=== PATIENT | male | born 1935 | race Caucasian/White ===

== ENCOUNTER 2021-05-31 00:42 | Day surgery (SDC) | payer MEDICARE, BC, SELFPAY ==
[2021-05-16 12:31] VITALS: BMI 19.7
[2021-05-31 09:36] VITALS: BP 134/67; PULSE 71; RESP 18; TEMP 36.3; O2SAT 100
[2021-05-31] MEDS: LACTATED RINGERS 1,000 ML 150 ML IV CONT (09:42)
--- NOTE | 2021-05-31 10:15 | WPDANESEPPF ---
Anes - Initial Pre Proc Eval Procedure: Operation Date: 05/31/21 10:30 Proposed Procedures p Esophagogastroduodenoscopy - Lars Meredith MD Date/Time: 05/31/21 10:15 Surgeon: Lars Meredith MD Pre Op Diagnosis: dysphagia Patient Data Age: 85 Gender: M Height: 1.83 m Weight: 61.8 kg Last Vital Signs Temp 97.3 F L 05/31/21 09:36 Pulse 71 05/31/21 09:36 Resp 18 05/31/21 09:36 BP 134/67 05/31/21 09:36 Pulse Ox 100 05/31/21 09:36 Allergies Allergy/AdvReac Type Severity Reaction Status Date / Time No Known Allergies Allergy NONE Unverified 05/16/21 12:27 Home Medications Medication Instructions Recorded Confirmed Type aspirin 325 mg tablet 325 mg PO DAILY 05/05/21 05/16/21 History finasteride 5 mg tablet 5 mg PO DAILY 05/05/21 05/16/21 History isosorbide dinitrate 30 mg tablet 30 mg PO DAILY tablet 05/05/21 05/16/21 History metoprolol succinate 25 mg 25 mg PO DAILY 05/05/21 05/16/21 History tablet,extended release 24 hr simvastatin 80 mg tablet 80 mg PO DAILY 05/05/21 05/16/21 History coenzyme Q10 [CoQ-10] 200 mg PO DAILY 05/16/21 05/16/21 History omega-3 fatty acids [Fish Oil] 1 cap PO DAILY 05/16/21 05/16/21 History Patient hx anesthesia problems: none Family hx anesthesia problems: none Results Review: All pre-operative results and documents have been reviewed as part of the pre-operative evaluation. [facility] Past Medical History Medical History (Updated 05/05/21 @ 11:26 by Lars Meredith MD) Hypertension Surgical History Surgical History (Updated 05/31/21 @ 10:11 by Cory Aguilar MD) S/P CABG x 4 Social History Social History (Updated 05/05/21 @ 10:50 by Francine Mancini CMA) Smoking packs per day: 2 Smoking cigarettes per day: 40.0 Years smoked: 15 Smoking pack-years: 30.00 Smoking status: Former smoker Tobacco type: cigarettes Alcohol intake: current Drinks per week: 1 Substance use: never Living arrangements: with family Spiritual care concerns: No Anes - Eval Final PreProcedure Day of Procedure 05/31/21 10:15 Patient weight: normal Heart: regular rate and rhythm Lungs: clear to auscultation Airway: Mallampati scale class II Neurological: alert and oriented Last oral intake: >/= 8 hours ASA classification: III Emergent: no Anesthetic plan: proceed Anesthesia type and monitoring: general GIVS and standard monitoring Results Review: All pre-operative results and documents have been reviewed as part of the pre-operative evaluation. Informed Consent: The patient's anesthetic plan and its attendant risks and benefits were discussed with the patient/family/POA. Questions were solicited and answers provided to the satisfaction of the patient/family/POA.
[2021-05-31 11:28] VITALS: BP 126/65; PULSE 81; RESP 23; O2SAT 97
[2021-05-31 11:38] VITALS: BP 122/65; PULSE 72; RESP 23; O2SAT 98
[2021-05-31 11:48] VITALS: BP 115/63; PULSE 64; RESP 20; O2SAT 98
== END 2021-05-31 11:58 | disposition home or self-care (01) ==
PROVIDERS: PCP Internal Medicine; Visit Provider Internal Medicine Gastroenterology
PROC: 0DJ08ZZ Inspection of Upper Intestinal Tract, Via Natural or Artificial Opening Endoscopic (ICD-10-PCS; CPT 43235; principal; 2021-05-31 10:30)
DX: K22.2 Esophageal obstruction (principal); K29.70 Gastritis, unspecified, without bleeding; K44.9 Diaphragmatic hernia without obstruction or gangrene; I10 Essential (primary) hypertension; Z79.82 Long term (current) use of aspirin; Z87.891 Personal history of nicotine dependence; Z95.1 Presence of aortocoronary bypass graft
CPT/HCPCS: 43249; 43239; 88305; C1726; J2704; J7120